=== PATIENT | female | born 1940 | race Caucasian/White ===

== ENCOUNTER 2020-04-06 14:15 | Outpatient (CLI) | payer MEDICARE, BC ==
[~2020-04-06] VITALS: Ht 162.6 cm; Wt 68.0 kg
[~2020-04-06 14:15] MED LIST: ACET650T2 PO; CALC600T16 PO; CELE50CA PO; CHOL50004 PO; FLAX100015 PO; LORA-512 PO; MULT-1085 PO; PRED20TA PO; RALO60TA55 PO
[2020-04-06 14:40] LABS: ABG BASE EXCESS -0.6 mmol/L (-2.0-3.0); ABG HCO3 22.5 mmol/L (22.0-26.0); ABG OXYGEN SATURATION 95.7 % (95-98); ABG PCO2 (T) 32.8 mmHg (35.0-45.0); ABG PO2 (T) 76.9 mmHg (83-108); ALLEN'S TEST POSITIVE; FCOHb 0.1 % (0.5-1.5); FMetHb 0.2 % (0.3-1.12); FO2Hb 95.4 % (94-100); TOTAL HEMOGLOBIN 14.3 G/dl (12.0-16.0)
[2020-04-06] MEDS ORDERED: albuterol 2.5 MG/3 ML nebule NEB ONE (15:10)
== END 2020-04-06 23:59 | disposition home or self-care (01) ==
LOC: RT 14:15
PROVIDERS: ATTEND Internal Medicine Cardiovascular Disease
DX: J44.9 Chronic obstructive pulmonary disease, unspecified (principal); R06.02 Shortness of breath
CPT/HCPCS: 36600; 82803; 85018; 94010; 94727; 94729